=== PATIENT | male | born 1985 | race Caucasian/White ===

== ENCOUNTER 2016-10-30 12:08 | Emergency (ER) | payer SELFPAY ==
--- NOTE | 2016-10-30 12:09 | ED Physician Chart ---
Chief Complaint/HPI - Patient Information Date Seen:: 10/30/16 Time Seen:: 12:09 Chief Complaint:: seizure History of Present Illness:: 31-year-old male with history of seizure disorder, brought in by EMS with acute , constant, now resolved, severe, seizure activity that lasted about 1 minute and started about 20 minutes prior to arrival when he was at [facility] picking up his antiseizure medications. Patient was apparently drinking alcohol (sandra and Coca-Cola) last night. Has associated postictal state and tongue laceration. Also had some associated vomiting after the seizure. Unknown if he hit his head. Denies, chest pain, abdominal pain, dysuria, gross hematuria, acute vision changes, numbness, tingling. Historian:: Patient, EMS Review:: EMS run form Reviewed Review of Systems - Review of Systems Other: Complete system review otherwise unremarkable except as noted in history of present illness. Past Medical History - Past Medical History Past Medical History: HTN, DM, Seizures Family History: None Social History: Smoker, Alcohol, No Drug Use Surgical History: None Psychiatricy History: None Medication: Reviewed Family Medical History - Family Member Mother History Unknown: Yes Ethnicity: Non- Physical Exam - Physical Examination Other:: INITIAL VITAL SIGNS: Reviewed by me GENERAL: Patient is lying on gurney. Alert but slightly disoriented. HEAD: Head is normocephalic. No evidence of trauma. No scalp or facial swelling EYES: No scleral icterus bilaterally ENT: Oropharynx has some slight dried blood on her lateral left lip area. Otherwise is clear of exudate and erythema NECK: Supple. No meningismus. No masses. No evidence of trauma. No cervical spine bony step-offs or crepitus to palpation RESPIRATORY: No tachypnea. Clear to auscultation bilaterally. CV: Regular rate and rhythm. No murmurs, rubs, or gallops ABDOMEN: Soft, non-distended. No masses BACK: No ecchymoses. No evidence of trauma EXTREMITIES: Normal to inspection and palpation. No deformity SKIN: Warm and dry. No obvious rash. No jaundice NEUROLOGIC: Face is symmetric. Withdraws to pain in all extremities Labs/Radiology/EKG Results - Lab Results Results: Lab Results 10/30/16 10/30/16 10/30/16 Range/Units 12:20 12:20 12:20 WBC 6.7 (4.8-10.8) Th/cmm RBC 5.28 (4.30-5.70) Mil/cmm Hgb 15.3 (13.2-17.3) gm/dL Hct 45.1 (39.0-49.0) % MCV 85.3 (80-99) fl MCH 28.9 (26.0-30.0) pg MCHC Differential 33.9 (28.0-36.0) pg RDW 12.1 (11.5-20.0) % Plt Count 302 (150-400) Th/cmm MPV 9.0 fl Neutrophils % 63.1 (40.0-80.0) % Lymphocytes % 30.1 (20.0-50.0) % Monocytes % 6.2 (2.0-10.0) % Eosinophils % 0.6 (0.0-5.0) % Basophils % 0.0 (0.0-2.0) % Sodium 130 L (136-145) mEq/L Potassium 3.2 L (3.5-5.1) mEq/L Chloride 101 (98-107) mEq/L Carbon Dioxide 17.9 L (21.0-31.0) mEq/L Anion Gap 14.3 (7.0-16.0) BUN 13 (7-25) mg/dL Creatinine 1.0 (0.7-1.3) mg/dL Est GFR ( Amer) > 60.0 (>90) ml/min Est GFR (Non-Af Amer) > 60.0 ml/min BUN/Creatinine Ratio 13.0 Glucose 120 H (70-105) mg/dL Calcium 9.5 (8.6-10.3) mg/dL Total Bilirubin 0.3 (0.3-1.0) mg/dL AST 26 (13-39) U/L ALT 29 (7-52) U/L Alkaline Phosphatase 55 (34-104) U/L Total Protein 7.8 (6.0-8.3) gm/dL Albumin 4.5 (4.2-5.5) gm/dL Globulin 3.3 gm/dL Albumin/Globulin Ratio 1.4 (1.0-1.8) Phenytoin < 2.5 L (10.0-20.0) ug/ml Ethyl Alcohol (0-10) mg/dL 10/30/16 Range/Units 12:20 WBC (4.8-10.8) Th/cmm RBC (4.30-5.70) Mil/cmm Hgb (13.2-17.3) gm/dL Hct (39.0-49.0) % MCV (80-99) fl MCH (26.0-30.0) pg MCHC Differential (28.0-36.0) pg RDW (11.5-20.0) % Plt Count (150-400) Th/cmm MPV fl Neutrophils % (40.0-80.0) % Lymphocytes % (20.0-50.0) % Monocytes % (2.0-10.0) % Eosinophils % (0.0-5.0) % Basophils % (0.0-2.0) % Sodium (136-145) mEq/L Potassium (3.5-5.1) mEq/L Chloride (98-107) mEq/L Carbon Dioxide (21.0-31.0) mEq/L Anion Gap (7.0-16.0) BUN (7-25) mg/dL Creatinine (0.7-1.3) mg/dL Est GFR ( Amer) (>90) ml/min Est GFR (Non-Af Amer) ml/min BUN/Creatinine Ratio Glucose (70-105) mg/dL Calcium (8.6-10.3) mg/dL Total Bilirubin (0.3-1.0) mg/dL AST (13-39) U/L ALT (7-52) U/L Alkaline Phosphatase (34-104) U/L Total Protein (6.0-8.3) gm/dL Albumin (4.2-5.5) gm/dL Globulin gm/dL Albumin/Globulin Ratio (1.0-1.8) Phenytoin (10.0-20.0) ug/ml Ethyl Alcohol 191 H (0-10) mg/dL - Radiology Results Results: CT head without contrast per radiology NAD - EKG Interpretations Comments:: 12-lead EKG Interpretation by Mesha Carter MD: Sinus tachycardia with ventricular rate of 107 beats per minute Normal axis Normal intervals No acute ST or T wave changes. No obvious STEMI Assessment - Assessment General Assessment: SMOKING CESSATION COUNSELING: I spent greater than 3 minutes at the bedside with the patient discussing the benefits of smoking cessation, including decreased risk of heart disease, lung cancer, and emphysema. We also discussed strategies for smoking cessation, including pharmaceutical options. The patient was also encouraged to follow up with the primary care physician for outpatient follow-up. Critical Care Time: 30 Excludes all billable procedures: Yes This condition life threatening/high prob of deterioration: Yes ED Septic Shock - . Is Septic Shock (SBP<90, OR Lactate>4 mmol\L) present?: No Reassessment (Disposition) - Reassessment Reassessment:: 31-year-old male history of hypertension and seizure disorder presents after acute seizure activity at [facility] drug store while he was picking up his antiseizure medications. Had a night of drinking alcohol. Says he has had similar episodes in the past after episodes of drinking. Says he is compliant with his antiseizure medications. Patient had some nausea after the seizure. He also had a small left-sided tongue laceration. Laceration was small enough that there was no repair needed. Patient did receive 4 mg of Zofran via paramedics. However on arrival he still complains of nausea. Received additional Zofran. Also received IV fluids and IV Ativan. Also gave IV Dilantin as Dilantin levels were low per labs. Alcohol levels elevated however patient is alert and oriented 4 and is ambulating without any gait abnormalities. Otherwise, labs and imaging were essentially unremarkable. Patient was hydrated and monitored here. No more seizure activity. Patient was initially postictal on arrival however became alert and oriented x4 soon after arrival. Ultimately patient was discharged home. His mother came to pick him up. Recommended follow-up with primary care and neurology within 1-2 days. Return to ER precautions were given. Patient says he understands and agrees with the plan. Reassessment Condition:: Improved - Diagnosis Diagnosis:: Acute seizure activity Acute tongue laceration Acute alcohol intoxication Hypertension Diabetes mellitus type 2 - Aftercare/Follow up Instructions Aftercare/Follow-Up Instructions:: Counseled pt regarding lab results/diagnosis & need follow up, Refer to Discharge Instructions - Patient Disposition Discharge/Transfer:: Home Time:: 13:42 Condition at Disposition:: Improved ED Discharge Plan - Patient Disposition Admit/Discharge/Transfer: PT DISCHARGED HOME Condition at Disposition: Improved Instructions: Seizure, Adult
[2016-10-30] MEDS ORDERED: Sodium Chloride 0.9% 1,000 ML IV ONE (12:11)
[2016-10-30 12:28] LABS: % EOSINOPHILS 0.6 % (0.0-5.0); % LYMPHOCYTES 30.1 % (20.0-50.0); % MONOCYTES 6.2 % (2.0-10.0); % NEUTROPHILS 63.1 % (40.0-80.0); HEMATOCRIT 45.1 % (39.0-49.0); HEMOGLOBIN 15.3 gm/dL (13.2-17.3); MEAN CELL VOLUME 85.3 fl (80-99); MEAN CORPUSCULAR HEMOGLOBIN 28.9 pg (26.0-30.0); MEAN CORPUSCULAR HGB CONC 33.9 pg (28.0-36.0); NEUTROPHILE ABSOLUTE 4.3 Th/cmm (1.8-8.0); PLATELET COUNT 302 Th/cmm (150-400); RED BLOOD COUNT 5.28 Mil/cmm (4.30-5.70); RED CELL DISTRIBUTION WIDTH 12.1 % (11.5-20.0); WHITE BLOOD COUNT 6.7 Th/cmm (4.8-10.8)
[2016-10-30 12:45] LABS: ALB/GLOB RATIO 1.4 (1.0-1.8); ALKALINE PHOSPHATASE 55 U/L (34-104); ANION GAP 14.3 (7.0-16.0); BILIRUBIN,TOTAL 0.3 mg/dL (0.3-1.0); BUN - UREA NITROGEN 13 mg/dL (7-25); CALCIUM SERUM 9.5 mg/dL (8.6-10.3); CARBON DIOXIDE 17.9 mEq/L (21.0-31.0); CHLORIDE 101 mEq/L (98-107); GLUCOSE 120 mg/dL (70-105); POTASSIUM SERUM 3.2 mEq/L (3.5-5.1); SGOT 26 U/L (13-39); SGPT/ALT 29 U/L (7-52); SODIUM SERUM 130 mEq/L (136-145)
[2016-10-30] MEDS ORDERED: Phenytoin 1,000 MG in Sodium Chloride 0.9% 100 ML IV ONE (13:10)
[2016-10-30] MEDS ORDERED: Phenytoin 50 mg/mL 5 mL Vial IV ONE (13:28)
--- NOTE | 2016-10-31 10:48 | Diagnostic Imaging Report ---
Head CT without intravenous contrast Indication: Seizure, headache Comparison: None Technique: Axial images were obtained from the vertex to the skull base without IV contrast. Coronal reconstructions were made. Total DLP: [id number], [id number] FINDINGS: Images of the brain obtained without contrast demonstrate no acute hemorrhage. No mass lesions identified. The ventricles and basal cisterns are patent. The abrams-white matter differentiation is preserved. There is no mass effect or midline shift. No skull fractures identified. No soft tissue swelling. The paranasal sinuses are clear. IMPRESSION: No acute intracranial abnormality
== END 2016-10-30 15:20 | disposition home or self-care (01) ==
LOC: ER 12:08
DX: R56.9 Unspecified convulsions (principal); F10.129 Alcohol abuse with intoxication, unspecified; S01.512A Laceration without foreign body of oral cavity, initial encounter; I10 Essential (primary) hypertension; E11.9 Type 2 diabetes mellitus without complications; Z88.8 Allergy status to other drugs, medicaments and biological substances; Z88.0 Allergy status to penicillin; F17.200 Nicotine dependence, unspecified, uncomplicated; X58.XXXA Exposure to other specified factors, initial encounter; Y93.89 Activity, other specified; Y92.89 Other specified places as the place of occurrence of the external cause; Y99.8 Other external cause status
CPT/HCPCS: 36415-UA; 70450-TC; 80053-TC; 80185-TC; 80299-90; 80320-TC; 85025-TC; 93005; J1165; J7030; Z7502; Z7610